=== PATIENT | male | born 1950 | race Caucasian/White ===

== ENCOUNTER 2017-01-11 09:39 | Day surgery (SDC) | payer MEDICARE, OTHER ==
--- NOTE | ~2017-01-11 | EGD ---
EGD REPORT [facility] [address] [address] NAME: ANTONY ANTON JR : [birth year] STATUS : REG [facility]#: [id number] AGE: 66 ADM/REG DATE : 01/11/17 MR#: [id number] REPORT SERV DATE: 01/11/17 DICTATED BY: RAKAN CURRIE DATE: 01/11/17 REPORT STATUS : Draft TRANSCRIBED BY: [facility] DATE: 01/11/17 Endoscopy Center Patient Name: Antony Anton Date of : 1950 Attending MD: RAKAN CURRIE MD Procedure Date No Time: 01/11/2017 Procedure: Upper GI endoscopy Indications: Heme positive stool, Melena Referring MD: Sheldon Angeles MD Medicines: Propofol per Anesthesia Complications: No immediate complications. Procedure: Pre-Anesthesia Assessment: - ASA Grade Assessment: II - A patient with mild systemic disease. After obtaining informed consent, the endoscope was passed under direct vision. Throughout the procedure, the patient's blood pressure, pulse, and oxygen saturations were monitored continuously. The GIF [id number] was introduced through the mouth, and advanced to the third part of duodenum. The upper GI endoscopy was accomplished without difficulty. The patient tolerated the procedure well. Findings: LA Grade A (one or more mucosal breaks less than 5 mm, not extending between tops of 2 mucosal folds) esophagitis with no bleeding was found in the entire esophagus. Biopsies were taken with a cold forceps for histology. A small hiatus hernia was present. as seen on retroflexion Localized mild inflammation characterized by congestion (edema) and erythema was found in the entire examined stomach. Biopsies were taken with a cold forceps for Helicobacter pylori testing. Localized mild inflammation characterized by congestion (edema) and erythema was found in the duodenal bulb. Biopsies were taken with a cold forceps for evaluation of celiac disease. And giardia, whipple's disease, and enteritis The 2nd part of the duodenum and 3rd part of the duodenum were normal. Biopsies were taken with a cold forceps for evaluation of celiac disease. And giardia, whipple's disease, and enteritis Impression: - LA Grade A reflux esophagitis. Biopsied. - Hiatus hernia. - Gastritis. Biopsied. - Duodenitis. Biopsied. - Normal 2nd part of the duodenum and 3rd part of the EGD REPORT [place] [id number] [facility] [place]. [address] NAME: ANTONY ANTON JR : [birth year] STATUS : REG [facility]#: [id number] AGE: 66 ADM/REG DATE : 01/11/17 MR#: [id number] REPORT SERV DATE: 01/11/17 DICTATED BY: RAKAN CURRIE DATE: 01/11/17 REPORT STATUS : Draft TRANSCRIBED BY: [facility] DATE: 01/11/17 duodenum. Biopsied. Recommendation: - Patient has a contact number available for emergencies. The signs and symptoms of potential delayed complications were discussed with the patient. Return to normal activities tomorrow. Written discharge instructions were provided to the patient. - Return to previous diet. - Continue present medications. - Use Protonix (pantoprazole) 40 mg PO daily. - take 30-60 minutes before breakfast - Await pathology results. - Return to my office as previously scheduled. - Discharge patient to home. Procedure Code(s): --- Professional --- 34419, Esophagogastroduodenoscopy, flexible, transoral; with biopsy, single or multiple Diagnosis Code(s): --- Professional --- K21.0, Gastro-esophageal reflux disease with esophagitis K44.9, Diaphragmatic hernia without obstruction or gangrene K29.70, Gastritis, unspecified, without bleeding K29.80, Duodenitis without bleeding R19.5, Other fecal abnormalities K92.1, Melena CPT copyright 2013 [employer]. All rights reserved. The codes documented in this report are preliminary and upon lead military analyst review may be revised to meet current compliance requirements. Rakan Currie MD RAKAN CURRIE MD 01/11/2017 12:03 PM This report has been signed electronically. Number of Addenda: 0 Note Initiated On: 01/11/2017 10:53 AM Scope Withdrawal Time 0 hours 0 minutes 0 seconds [address] [id number]
--- NOTE | ~2017-01-11 | EGD ---
EGD REPORT [facility] [address] [place]. [address] NAME: ANTONY ANTON JR : [birth year] STATUS : REG [facility]#: [id number] AGE: 66 ADM/REG DATE : 01/11/17 MR#: [id number] REPORT SERV DATE: 01/11/17 DICTATED BY: RAKAN CURRIE DATE: 01/11/17 REPORT STATUS : Draft TRANSCRIBED BY: [employer] DATE: 01/11/17 Endoscopy Center Patient Name: Antony Anton Date of : 1950 Attending MD: RAKAN CURRIE MD Procedure Date No Time: 01/11/2017 Procedure: Colonoscopy Indications: Heme positive stool, Melena, FH of Colonic Polyps - 1st degree relative Referring MD: Sheldon Angeles MD Medicines: Propofol per Anesthesia Complications: No immediate complications. Procedure: Pre-Anesthesia Assessment: - ASA Grade Assessment: II - A patient with mild systemic disease. After I obtained informed consent, the scope was passed under direct vision. Throughout the procedure, the patient's blood pressure, pulse, and oxygen saturations were monitored continuously. The CF [id number] was introduced through the anus and advanced to the terminal ileum. The colonoscopy was performed without difficulty. The patient tolerated the procedure well. The quality of the bowel preparation was good. Findings: The perianal and digital rectal examinations were normal. The terminal ileum appeared normal. The colon (entire examined portion) appeared normal. A sessile polyp was found in the ascending colon. The polyp was 3 mm in size. The polyp was removed with a cold biopsy forceps. Resection and retrieval were complete. Multiple small and large-mouthed diverticula were found in the recto-sigmoid colon, in the sigmoid colon, in the descending colon, in the transverse colon and in the ascending colon. Non-bleeding internal hemorrhoids were found during retroflexion and were mild, medium-sized and Grade I (internal hemorrhoids that do not prolapse). Impression: - The examined portion of the ileum was normal. - The entire examined colon is normal. - One 3 mm polyp in the ascending colon. Resected and retrieved. - Diverticulosis in the recto-sigmoid colon, in the sigmoid colon, in the descending colon, in the transverse colon and in the ascending colon. EGD REPORT [address] [place]. [address] NAME: ANTONY ANTON JR : [birth year] STATUS : REG [facility]#: [id number] AGE: 66 ADM/REG DATE : 01/11/17 MR#: [id number] REPORT SERV DATE: 01/11/17 DICTATED BY: RAKAN CURRIE DATE: 01/11/17 REPORT STATUS : Draft TRANSCRIBED BY: [employer] DATE: 01/11/17 - Non-bleeding internal hemorrhoids. Recommendation: - Patient has a contact number available for emergencies. The signs and symptoms of potential delayed complications were discussed with the patient. Return to normal activities tomorrow. Written discharge instructions were provided to the patient. - Return to previous diet. - Continue present medications. - Await pathology results. - Repeat colonoscopy in 3 - 5 years for surveillance based on pathology results. - Return to my office as previously scheduled. - Discharge patient to home. Procedure Code(s): --- Professional --- 77515, Colonoscopy, flexible, proximal to splenic flexure; with biopsy, single or multiple Diagnosis Code(s): --- Professional --- K64.0, First degree hemorrhoids K57.30, Diverticulosis of large intestine without perforation or abscess without bleeding D12.2, Benign neoplasm of ascending colon R19.5, Other fecal abnormalities K92.1, Melena Z83.71, Family history of colonic polyps CPT copyright 2013 [employer]. All rights reserved. The codes documented in this report are preliminary and upon tomato grader review may be revised to meet current compliance requirements. Rakan Currie MD RAKAN CURRIE MD 01/11/2017 12:13 PM This report has been signed electronically. Number of Addenda: 0 Note Initiated On: 01/11/2017 10:52 AM Scope Withdrawal Time 0 hours 11 minutes 15 seconds
[~2017-01-11 09:39] MED LIST: K500 PO; PHAZYME; PROTONIX PO
== END 2017-01-11 23:59 | disposition home or self-care (01) ==
LOC: DMU 09:39
PROVIDERS: Internal Medicine Gastroenterology
PROC: 0DB98ZX Excision of Duodenum, Via Natural or Artificial Opening Endoscopic, Diagnostic (ICD-10-PCS; 2017-01-11)
PROC: 0DB68ZX Excision of Stomach, Via Natural or Artificial Opening Endoscopic, Diagnostic (ICD-10-PCS; 2017-01-11)
PROC: 0DBK8ZZ Excision of Ascending Colon, Via Natural or Artificial Opening Endoscopic (ICD-10-PCS; principal; 2017-01-11 10:30)
PROC: 0DB58ZX Excision of Esophagus, Via Natural or Artificial Opening Endoscopic, Diagnostic (ICD-10-PCS; 2017-01-11 10:30)
DX: D12.2 Benign neoplasm of ascending colon (principal); K64.0 First degree hemorrhoids; K57.30 Diverticulosis of large intestine without perforation or abscess without bleeding; R19.5 Other fecal abnormalities; K92.1 Melena; K21.0 Gastro-esophageal reflux disease with esophagitis; N40.0 Benign prostatic hyperplasia without lower urinary tract symptoms; K44.9 Diaphragmatic hernia without obstruction or gangrene; K29.70 Gastritis, unspecified, without bleeding; K29.80 Duodenitis without bleeding; K21.9 Gastro-esophageal reflux disease without esophagitis; Z83.71 Family history of colonic polyps; Z88.5 Allergy status to narcotic agent; Z79.2 Long term (current) use of antibiotics; Z79.899 Other long term (current) drug therapy; Z98.890 Other specified postprocedural states; Z87.442 Personal history of urinary calculi; Z97.2 Presence of dental prosthetic device (complete) (partial)
CPT/HCPCS: 88305